=== PATIENT | male | born 1995 | race American Indian/Alaskan Native ===

== ENCOUNTER 2019-01-09 12:26 | Outpatient (CLI) | payer OTHER ==
--- NOTE | 2019-01-09 14:18 | Magnetic Resonance Report ---
MRI BRAIN 01/09/2019 INDICATION / CLINICAL INFORMATION: MULTIPLE SCLEROSIS/LOW VISION/ONE EYE. TECHNIQUE: Multiplanar, multisequence MR images of the brain were obtained. COMPARISON: None available. FINDINGS: BRAIN / INTRACRANIAL CONTENTS: Unenhanced MR images of the brain were obtained. No previous studies a re available here for comparison. There are numerous focal and patchy periventricular white matter T2 weighted hyperintensities present throughout the cerebral hemispheres bilaterally. The configuration and pattern of these white matter lesions is compatible with an suggestive of multiple sclerosis. There is no evidence of acute ischem ic injury. Ventricles and sulci are normal in size and shape. There are no abnormal extra-axial fluid collections. There is no evidence of hemorrhage. EXTRACRANIAL: Unremarkable CRANIOCERVICAL JUNCTION: No significant abnormality. VASCULAR FLOW-VOIDS: No significant abnormality. IMPRESSION: Numerous periventricular white matter lesions, in a pattern and distribution consistent with multipl e sclerosis. Signer Name: Rm Rubio MD Signed: 01/09/2019 2:13 PM Workstation Name: [id number]
== END 2019-01-09 12:27 | disposition home or self-care (01) ==
LOC: MRI 12:26
PROVIDERS: ATTEND Internal Medicine
DX: G35 Multiple sclerosis (principal)
CPT/HCPCS: 70551